=== PATIENT | male | born 1960 | race African-American/Black ===

== ENCOUNTER 2016-08-17 10:00 | Inpatient (IN) | payer OTHER ==
--- NOTE | ~2016-08-17 | DS ---
Unit #: [id number] #: [id number] Patient: RACHID TUCKER [id number] [place] [address] [id number] I MR#: [id number] NAME: RACHID TUCKER ROOM: 13 Age: 56 Sex: M Admission Date: 08/17/2016 : 1960 Discharge Date: 08/29/2016 Attending Physician: Jose Ha M.D. Primary Care Physician: Primary Care Physician No DISCHARGE SUMMARY REASON FOR ADMISSION The patient is a 56-year-old male admitted with recurrent suicidal ideation following a period of medication noncompliance. HOSPITAL COURSE The patient was admitted to the [address] [place] [address] unit and restarted on previously prescribed medications including Seroquel, trazodone, Prozac, Lipitor, and Norvasc. As this is generally the case, the patient's mood seemed to worsen somewhat before improving. By 08/29/2016, the patient was in much brighter spirits and denied suicidal ideation. He was agreeable with plan for discharge, it was so ordered. During his stay in the hospital, efforts were made to place the patient at facility in [facility], but he is unfortunately . FINAL DIAGNOSIS Chronic paranoid schizophrenia. DISPOSITION ON DISCHARGE The patient is discharged on the following medications: Seroquel 100 mg daily and 400 mg at bedtime, trazodone 100 mg at h.s. p.r.n. insomnia, Prozac 20 mg daily for depression, Lipitor 20 mg daily for dyslipidemia, and Norvasc 10 mg once daily for hypertension. DISCHARGE INSTRUCTIONS No dietary or physical restrictions were placed on the patient at the time of discharge. FOLLOWUP Followup will take place through the auspices of community mental health resources. PROGNOSIS The patient's prognosis is considered fair. Dictated by... Jose Ha M.D. LAURENCE/ammy TD: 08/30/2016 03:04 JOB #: [id number] Unit #: [id number] #: [id number] Patient: RACHID TUCKER DISCHARGE SUMMARY Page 1 of 1 X Jose Ha MD DISCHARGE SUMMARY
--- NOTE | ~2016-08-17 | PN ---
Unit #: [id number] #: [id number] Patient: RACHID TUCKER [id number] [facility] [address] [place] [address] [id number] MR#: [id number] NAME: RACHID TUCKER ROOM: 13 Age: 56 Sex: M Admission Date: 08/17/2016 : 1960 Attending Physician: Jose Ha M.D. Admitting Physician: Jose Ha M.D. Primary Care Physician: Primary Care Physician Aysha GRIFFITH PROGRESS NOTES DATE 08/27/2016 DISCUSSION The patient is in brighter spirits today. He is reporting some reduction in suicidal ideation. We continue to await word regarding positive placement at a residential facility in [facility]. Dictated by... Jose Ha M.D. CB/bzalissa TD: 08/27/2016 14:21 JOB #: [id number] [facility] PROGRESS NOTES Page 1 of 1 X Jose Ha MD PROGRESS NOTE
--- NOTE | ~2016-08-17 | PN ---
Unit #: [id number] #: [id number] Patient: RACHID TUCKER [id number] [facility] [address] [place] [address] [id number] I MR#: [id number] NAME: RACHID TUCKER ROOM: 13 Age: 56 Sex: M Admission Date: 08/17/2016 : 1960 Attending Physician: Jose Ha M.D. Admitting Physician: Jose Ha M.D. Primary Care Physician: Primary Care Physician Aysha GRIFFITH PROGRESS NOTES DATE 08/28/2016 DISCUSSION The patient remains active within the therapeutic milieu and is reporting reduction in suicidal ideation. It does not at this point appear as though the placement being sought for the patient is going to come to fruition, and we are likely looking at a.m. discharge. Dictated by... Jose Ha M.D. CB/bzg TD: 08/28/2016 15:46 JOB #: [id number] [facility] PROGRESS NOTES Page 1 of 1 X oJse Ha MD PROGRESS NOTE
--- NOTE | ~2016-08-17 | PA ---
Unit #: [id number] #: [id number] Patient: RACHID TUCKER [id number] [place] [address] [id number] I MR#: [id number] NAME: RACHID TUCKER ROOM: 13 Age: 56 Sex: M Admission Date: 08/17/2016 : 1960 Date of Assessment: 08/17/2016 Attending Physician: Jose Ha M.D. Admitting Physician: Jose Ha M.D. Primary Care Physician: Primary Care Physician No PSYCHIATRIC ASSESSMENT IDENTIFYING INFORMATION The patient is a 56-year-old male well-known to this physician. He returns with recurrent suicidal ideation and auditory hallucinations related to a period of medication noncompliance. CHIEF COMPLAINT None given. INFORMANT(S) The patient, reliability is fair. The patient is a 56-year-old male well-known to this physician for multiple previous admissions to facility the last of which ended on 05/01/2016. The patient reports that he was dismissed from [facility] secondary to several missed appointments and has been off medications for some time. The patient had previously been discharged on Seroquel, trazodone, Prozac and Lipitor and Norvasc which reports recurrence of suicidal and homicidal ideation as well as auditory hallucinations. He is now claiming to have hepatitis C though he has not claimed this in the past. The patient reports no use of psychiatric substances though he does have a history of cocaine and alcoholic use. For more complete history of illness please refer to previous dictated notes. PAST PSYCHIATRIC HISTORY Reviewed no changes. PAST MEDICAL HISTORY Reviewed no changes. MEDICATIONS 1. Seroquel 2. Trazodone 3. Prozac 4. Norvasc 5. Lipitor ALLERGIES None. FAMILY HISTORY Reviewed no changes. Unit #: [id number] #: [id number] Patient: RACHID TUCKER SOCIAL HISTORY Reviewed no changes. MENTAL STATUS EXAM At this time reveals the patient to be an obese female appearing stated age. He is in no apparent physical distress at the time of examination. He is awake, alert, oriented in all spheres. His mood is mildly dysphoric. His affect constricted. Speech is generally relevant and coherent. There are no gross deficits in memory or cognition noted. Intelligence is judged to be in the average range based on fund of knowledge. The patient is cooperative throughout the interview. He is currently endorsing positive suicidal ideation and he denies homicidal ideation. He reports positive auditory hallucinations. His judgement and insight appear to be significantly impaired. ASSETS AND LIABILITIES ASSETS: Motivation for change. LIABILITIES: Lack of resources, poor compliance of treatment. ADMITTING DIAGNOSES 1. Schizoaffective disorder. 2. Hypertension. 3. Hepatitis C per the patient history. 4. Dyslipidemia. TREATMENT PLAN The patient remains hospitalized for safety and stabilization. We will restart previously prescribed medications. Suicidal precautions are in place. The importance of consistent compliance of medication is stressed to the patient during today's interview. ESTIMATED LENGTH OF STAY Five to seven days. Dictated by... Jose Ha M.D. LAURENCE/andrew TD: 08/18/2016 20:44 JOB #: [id number] PSYCHIATRIC ASSESSMENT Page 1 of 1 X Jose Ha MD X PSYCHIATRIC ASSESSMENT
--- NOTE | ~2016-08-17 | PN ---
Unit #: [id number] #: [id number] Patient: RACHID TUCKER [id number] [facility] [address] [place] [address] [id number] I MR#: [id number] NAME: RACHID TUCKER ROOM: 13 Age: 56 Sex: M Admission Date: 08/17/2016 : 1960 Attending Physician: Jose Ha M.D. Admitting Physician: Jose Ha M.D. Primary Care Physician: Primary Care Physician Aysha GARCIA NOTES DATE 08/21/2016 DISCUSSION The patient continues to complain of auditory hallucinations and severe depression. He reports that his suicidal ideation persists. He is active within the therapeutic milieu and is tolerating reinitiation of aggressive pharmacotherapy. Dictated by... Jose Ha M.D. CB/luis TD: 08/21/2016 15:04 JOB #: [id number] [facility] PROGRESS NOTES Page 1 of 1 X Jose Ha MD PROGRESS NOTE
--- NOTE | ~2016-08-17 | PN ---
Unit #: [id number] #: [id number] Patient: RACHID TUCKER [id number] [facility] [address] [place] [address] [id number] I MR#: [id number] NAME: RACHID TUCKER ROOM: 13 Age: 56 Sex: M Admission Date: 08/17/2016 : 1960 Attending Physician: Jose Ha M.D. Admitting Physician: Jose Ha M.D. Primary Care Physician: Primary Care Physician Aysha GRIFFITH PROGRESS NOTES DATE 08/23/2016 DISCUSSION The patient reports mild improvement in mood but continues to endorse positive suicidal ideation or auditory hallucinations. He is a bit brighter and more active within the therapeutic milieu. We continue current treatment. Dictated by... Jose Ha M.D. CB/bzalissa TD: 08/23/2016 12:55 JOB #: [id number] [facility] PROGRESS NOTES Page 1 of 1 X Jose Ha MD PROGRESS NOTE
--- NOTE | ~2016-08-17 | PN ---
Unit #: [id number] #: [id number] Patient: RACHID TUCKER [id number] [facility] [address] [place] [address] [id number] I MR#: [id number] NAME: RACHID TUCKER ROOM: 13 Age: 56 Sex: M Admission Date: 08/17/2016 : 1960 Attending Physician: Jose Ha M.D. Admitting Physician: Jose Ha M.D. Primary Care Physician: Primary Care Physician Aysha GARCIA NOTES DATE 08/19/2016 DISCUSSION The patient continues to endorse positive suicidal ideation and hopelessness. He continues to report positive auditory hallucinations but is active within the therapeutic milieu. He remains on suicide precautions given his ongoing feelings of hopelessness and suicidal thought with plan to overdose. Dictated by... Jose Ha M.D. CB/arian TD: 08/19/2016 14:53 JOB #: [id number] [facility] PROGRESS NOTES Page 1 of 1 X Jose Ha MD PROGRESS NOTE
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
--- NOTE | ~2016-08-17 | PN ---
Unit #: [id number] #: [id number] Patient: RACHID TUCKER [id number] [facility] [address] [place] [address] [id number] I MR#: [id number] NAME: RACHID TUCKER ROOM: P113 Age: 56 Sex: M Admission Date: 08/17/2016 : 1960 Attending Physician: Jose Ha M.D. Admitting Physician: Jose Ha M.D. Primary Care Physician: Primary Care Physician Aysha GRIFFITH PROGRESS NOTES DATE 08/26/2016 DISCUSSION The patient remains somewhat dysphoric but is active within the therapeutic milieu. He continues to express feelings of hopelessness related to his current home situation but is working with a social services analyst regarding possible placement at a facility in [facility]. We continue current treatment and suicide precautions remain in place. Dictated by... Jose Ha M.D. CB/luis TD: 08/26/2016 15:59 JOB #: [id number] [facility] PROGRESS NOTES Page 1 of 1 X Jose Ha MD PROGRESS NOTE
--- NOTE | ~2016-08-17 | PN ---
Unit #: [id number] #: [id number] Patient: RACHID TUCKER [id number] [facility] [address] [place] [address] [id number] I MR#: [id number] NAME: RACHID TUCKER ROOM: 13 Age: 56 Sex: M Admission Date: 08/17/2016 : 1960 Attending Physician: Jose Ha M.D. Admitting Physician: Jose Ha M.D. Primary Care Physician: Primary Care Physician Aysha GRIFFITH PROGRESS NOTES DATE 08/16/2016 DISCUSSION The patient is in brighter spirits today and is reporting some reduction in auditory hallucinations and suicidal thinking should he sustain progress discharge should take place in the early week. Dictated by... Jose Ha M.D. CB/andrew TD: 08/25/2016 02:34 JOB #: [id number] [facility] PROGRESS NOTES Page 1 of 1 X Jose Ha MD X PROGRESS NOTE
--- NOTE | ~2016-08-17 | PN ---
Unit #: [id number] #: [id number] Patient: RACHID TUCKER [id number] [facility] [address] [place] [address] [id number] MR#: [id number] NAME: RACHID TUCKER ROOM: 13 Age: 56 Sex: M Admission Date: 08/17/2016 : 1960 Attending Physician: Jose Ha M.D. Admitting Physician: Jose Ha M.D. Primary Care Physician: Primary Care Physician Aysha GRIFFITH PROGRESS NOTES DATE 08/18/2016 DISCUSSION The patient is active within the therapeutic milieu but continues to endorse positive suicidal ideation as well as auditory hallucinations. We continue current treatment. Dictated by... Jose Ha M.D. CB/andrew TD: 08/19/2016 02:41 JOB #: [id number] [facility] PROGRESS NOTES Page 1 of 1 X Jose Ha MD X PROGRESS NOTE
--- NOTE | ~2016-08-17 | PN ---
Unit #: [id number] #: [id number] Patient: RACHID TUCKER [id number] [facility] [address] [place] [address] [id number] MR#: [id number] NAME: RACHID TUCKER ROOM: P113 Age: 56 Sex: M Admission Date: 08/17/2016 : 1960 Attending Physician: Jose Ha M.D. Admitting Physician: Casey Henriquez PROGRESS NOTES DATE 08/25/2016 DISCUSSION The patient is a bit more dysphoric today. We continued to work regarding his referral to a residential facility in [facility] where the patient hopes to go following discharge. We continued current treatment. He is more active within the therapeutic milieu but continues to endorse thoughts of suicide. Dictated by... Jose Ha M.D. CB/ezekiel TD: 08/25/2016 14:46 JOB #: [id number] [facility] PROGRESS NOTES Page 1 of 1 X Jose Ha MD X PROGRESS NOTE
--- NOTE | ~2016-08-17 | PN ---
Unit #: [id number] #: [id number] Patient: RACHID TUCKER [id number] [facility] [address] [place] [address] [id number] I MR#: [id number] NAME: RACHID TUCKER ROOM: P113 Age: 56 Sex: M Admission Date: 08/17/2016 : 1960 Attending Physician: Jose Ha M.D. Admitting Physician: Jose Ha M.D. Primary Care Physician: Primary Care Physician Aysha GRIFFITH PROGRESS NOTES DATE 08/20/2016 DISCUSSION The patient seems a tad brighter when seen today but continues to endorse positive suicidal ideation. I have spoken with him regarding increasing his participation within the therapeutic milieu which has been better during this hospitalization but not exemplary. Suicide precautions remain in place given the patient's ongoing threats of suicide. Dictated by... Jose Ha M.D. CB/arian TD: 08/20/2016 13:54 JOB #: [id number] [facility] PROGRESS NOTES Page 1 of 1 X Jose aH MD PROGRESS NOTE
[~2016-08-17 10:00] MED LIST: LISINOPRIL10 MG PO; MARINOL5 MG PO; SEROQUEL PO; SEROQUEL400 MG PO
[2016-08-18 10:13] LABS: BASOPHIL# 0.1 X10e3 (0-0.3); BASOPHIL% 2.1 % (0-2.5); EOSINOPHIL# 0.1 X10e3 (0-0.7); EOSINOPHIL% 2.7 % (0.0-7.0); HEMATOCRIT 47.2 % (38.0-50.0); HEMOGLOBIN 14.9 gm/dL (13.0-16.0); LYMPHOCYTE# 2.1 X10e3 (1.0-3.5); LYMPHOCYTE% 44.9 % (17.0-45.0); MEAN CELL VOLUME 85.7 FL (83-96); MEAN CORPUSCULAR HGB CONC 31.5 g/dL (30-36); MEAN PLATELET VOLUME 8.9 FL (6.5-11.5); MONOCYTE# 0.5 X10e3 (0-1.0); MONOCYTE% 9.8 % (3.0-12.0); NEUTROPHIL# 1.9 X10e3 (1.5-7.1); NEUTROPHIL% 40.5 % (40-75); RED BLOOD COUNT 5.51 X10e (3.90-5.60); RED CELL DISTRIBUTION WIDTH 14.2 % (11.0-15.5); WHITE BLOOD COUNT 4.7 X10e3 (4.0-10.5)
[2016-08-18 10:20] LABS: THYROID STIMULATING HORMONE 0.71 uIU/ml (0.34-5.60)
[2016-08-18 10:31] LABS: FREE THYROXIN (T4) 0.82 ng/dL (0.58-1.64)
[2016-08-18 10:32] LABS: ALBUMIN SERUM 4.2 g/dL (3.5-5.0); CALCIUM SERUM 9.4 mg/dL (8.4-10.2); CREATININE SERUM 1.2 mg/dL (0.6-1.4); GLOM FILT RATE Estimated 76.8 mL/min (>60); PROTEIN TOTAL SERUM 7.3 g/dL (6.0-8.3)
[2016-08-18 10:58] LABS: DIFF IND NO; PLATELET COUNT 203 X10e3 (140-420)
[2016-08-20 12:58] LABS: URINE APPEARANCE CLEAR; URINE BILIRUBIN NEG (NEG); URINE BLOOD NEG (NEG); URINE COLOR YELLOW; URINE GLUCOSE NEG (NEG); URINE KETONE NEG (NEG); URINE LEUKOCYTE ESTERASE NEG (NEG); URINE NITRATE NEG (NEG); URINE PH 7.5 (5-8); URINE PROTEIN NEG (NEG); URINE SPECIFIC GRAVITY 1.012 (1.003-1.035); URINE UROBILINOGEN 0.2 MG/DL (NEG)
[2016-08-20 14:12] LABS: AMPHETAMINE NEG (NEG); BARBITURATES NEG (NEG); BENZODIAZEPINES NEG (NEG); COCAINE POS (NEG); MARIJUANA POS (NEG); OPIATES NEG (NEG); TRICYCLIC ANTIDEPRESSANTS POS (NEG); U METHADONE NEG (NEG)
== END 2016-08-29 15:25 | disposition home or self-care (01) | DRG 885 ==
LOC: P1S 13:27
PROVIDERS: Specialist
DX: F20.0 Paranoid schizophrenia (principal); Z91.19 Patient's noncompliance with other medical treatment and regimen; K74.60 Unspecified cirrhosis of liver; I10 Essential (primary) hypertension; Z86.19 Personal history of other infectious and parasitic diseases; E78.5 Hyperlipidemia, unspecified
CPT/HCPCS: 80053; 80307; 81003; 84439; 84443; 85025

== ENCOUNTER 2016-09-18 18:59 | Inpatient (IN) | payer OTHER ==
--- NOTE | ~2016-09-18 | PN ---
Unit #: [id number] #: [id number] Patient: RACHID TUCKER [id number] [facility] [address] [place] [address] [id number] I MR#: [id number] NAME: RACHID TUCKER ROOM: P113 Age: 56 Sex: M Admission Date: 09/18/2016 : 1960 Attending Physician: Jose Ha M.D. Admitting Physician: Jose Ha M.D. Primary Care Physician: Primary Care Physician Aysha GRIFFITH PROGRESS NOTES DATE 09/25/2016 DISCUSSION The patient reports that he has been accepted at the facility and likes [place] and we will hope to transfer him directly from this facility there, he is a bit brighter today with reinitiation of Seroquel. Dictated by... Casey Henriquez TD: 09/25/2016 13:04 JOB #: [id number] [facility] PROGRESS NOTES Page 1 of 1 X Jose Ha MD PROGRESS NOTE
--- NOTE | ~2016-09-18 | HP ---
Unit #: [id number] #: [id number] Patient: OTIS TUCKER [id number] [facility] [address] [place] [address] [id number] I MR#: [id number] NAME: OTIS TUCKER ROOM: P113 Age: 56 Sex: M Admission Date: 09/18/2016 : 1960 Attending Physician: Jose Ha M.D. Admitting Physician: Jose Ha M.D. Primary Care Physician: Primary Care Physician No HISTORY AND PHYSICAL Otis is a 56 year old admitted to [address] [place] [address] with depression and verbalizing wanting to hurt himself. He has had numerous admissions to this facility for the same. Patient was seen and H and P dated 08/18/16 was reviewed. This is current. No changes. Please see H and P dated 08/18/16. Dictated by... Michelle Ott P.A.-C. for Casey Doherty/luis TD: 09/19/2016 20:37 JOB #: [id number] HISTORY AND PHYSICAL Page 1 of 1 X Michelle Ott HISTORY AND PHYSICAL
--- NOTE | ~2016-09-18 | PN ---
Unit #: [id number] #: [id number] Patient: RACHID TUCKER [id number] [facility] [address] [place] [address] [id number] I MR#: [id number] NAME: RACHID TUCKER ROOM: P113 Age: 56 Sex: M Admission Date: 09/18/2016 : 1960 Attending Physician: Jose Ha M.D. Admitting Physician: Jose Ha M.D. Primary Care Physician: Primary Care Physician Aysha GRIFFITH PROGRESS NOTES DATE OF SERVICE 09/29/2016 DISCUSSION Mr. Tucker is seen today for Dr. Ha during his vacation absence. The patient appears at baseline and denies active suicidal ideation, intent or plan. He has been granted a placement in a long-term care facility and is scheduled to go there tomorrow. ASSESSMENT Schizophrenia paranoid type. PLAN We will schedule discharge for the patient tomorrow with followup through community mental health. Dictated by... Rodger Medrano M.D. RHETT/andrew TD: 10/04/2016 23:09 JOB #: [id number] [facility] PROGRESS NOTES Page 1 of 1 X Rodger Medrano MD X PROGRESS NOTE
--- NOTE | ~2016-09-18 | PN ---
Unit #: [id number] #: [id number] Patient: RACHID TUCKER [id number] [facility] [address] [place] [address] [id number] I MR#: [id number] NAME: RACHID TUCKER ROOM: 13 Age: 56 Sex: M Admission Date: 09/18/2016 : 1960 Attending Physician: Jose Ha M.D. Admitting Physician: Jose Ha M.D. Primary Care Physician: Primary Care Physician Aysha GRIFFITH PROGRESS NOTES DATE 09/23/2016 DISCUSSION The patient requests reinitiation of his daytime dose of Seroquel stating, "I'm not doing to good." We will reinitiate the a.m. dose of Seroquel of 100 mg q.a.m. Continue the h.s. dose of 400 mg. the patient continues to endorse auditory hallucinations and suicidal thinking. Dictated by... Jose Ha M.D. CB/tony TD: 09/24/2016 07:45 JOB #: [id number] [facility] PROGRESS NOTES Page 1 of 1 X Jose Ha MD PROGRESS NOTE
--- NOTE | ~2016-09-18 | PN ---
Unit #: [id number] #: [id number] Patient: RACHID TUCKER [id number] [facility] [address] [place] [address] [id number] I MR#: [id number] NAME: RACHID TUCKER ROOM: P113 Age: 56 Sex: M Admission Date: 09/18/2016 : 1960 Attending Physician: Jose Ha M.D. Admitting Physician: Jose Ha M.D. Primary Care Physician: Primary Care Physician Aysha GRIFFITH PROGRESS NOTES DATE 09/20/2016 DISCUSSION The patient offers no new complaints today. He does continue to complain of sad mood and auditory hallucinations and reports that his pharmacy refused to fill his medications secondary to lack of required authorization. This seems odd and that is on all generic medications and is not on excessively high doses of any of these. We will continue currently prescribed medications. Dictated by... Jose Ha M.D. CB/luis TD: 09/20/2016 12:54 JOB #: [id number] [facility] PROGRESS NOTES Page 1 of 1 X Jose Ha MD PROGRESS NOTE
--- NOTE | ~2016-09-18 | DS ---
Unit #: [id number] #: [id number] Patient: RACHID TUCKER [id number] [facility] [address] [place] [address] [id number] MR#: [id number] NAME: RACHID TUCKER ROOM: 13 Age: 56 Sex: M Admission Date: 09/18/2016 : 1960 Discharge Date: 09/30/2016 Attending Physician: Jose Ha M.D. DISCHARGE SUMMARY REASON FOR ADMISSION Mr. Tucker is a 56-year-old man with multiple admissions to this facility for schizophrenia, who returned reporting noncompliance with discharge and ongoing psychosis and suicidal ideation. He was unable to contract for safety and was admitted under the care of Dr. Ha. DIAGNOSTIC STUDIES LABORATORY RESULTS: Please see hospital chart. HOSPITAL COURSE The patient was admitted and placed on previous medications. He was restarted on his previous medications and his physical examination was reviewed and not repeated. He had some excessive sedation from his medications and expressed significant interest in a residential placement. His social problems specialist began working toward this as requested, and by the date of discharge, placement had been found with the [facility] in [place], [place]; however, the patient appeared unhappy with this placement; however, he declined others. At this point, he was discharged to the community and given information for followup with [facility]. DISCHARGE DIAGNOSES AXIS I: Schizophrenia, paranoid type; major depressive disorder. AXIS II: No diagnosis. AXIS III: Hypertension and high cholesterol. AXIS IV: AXIS V: DISCHARGE INSTRUCTIONS Follow up with [facility]. DISCHARGE MEDICATIONS Seroquel 400 mg at bedtime for psychosis and 100 mg in the morning for psychosis, trazodone 100 mg at bedtime for insomnia, fluoxetine 20 mg daily for depression, Lipitor 20 mg at bedtime for high cholesterol, and Norvasc 10 mg daily for hypertension. CONDITION AT DISCHARGE Fair. PROGNOSIS Fair to poor. Unit #: [id number] #: [id number] Patient: RACHID TUCKER DIET AND ACTIVITY Per primary care doctor. Dictated by... Rodger Medrano M.D. /ammy TD: 10/06/2016 14:02 JOB #: [id number] DISCHARGE SUMMARY Page 1 of 1 X Rodger Medrano MD DISCHARGE SUMMARY
--- NOTE | ~2016-09-18 | PN ---
Unit #: [id number] #: [id number] Patient: RACHID TUCKER [id number] [facility] [address] [place] [address] [id number] I MR#: [id number] NAME: RACHID TUCKER ROOM: 13 Age: 56 Sex: M Admission Date: 09/18/2016 : 1960 Attending Physician: Jose Ha M.D. Admitting Physician: Jose Ha M.D. Primary Care Physician: Primary Care Physician Aysha GARCIA NOTES DATE 09/22/2016 DISCUSSION The patient is brighter and more active within the milieu therapeutic milieu. He continues to express interest in a residential placement and is working with the social service worker Mr. related there too. Dictated by... Jose Ha M.D. CB/andrew TD: 09/23/2016 04:07 JOB #: [id number] [facility] GARCIA NOTES Page 1 of 1 X Jose Ha MD PROGRESS NOTE
--- NOTE | ~2016-09-18 | PN ---
Unit #: [id number] #: [id number] Patient: RACHID TUCKER [id number] [facility] [address] [place] [address] [id number] I MR#: [id number] NAME: RACHID TUCKER ROOM: 13 Age: 56 Sex: M Admission Date: 09/18/2016 : 1960 Attending Physician: Jose Ha M.D. Admitting Physician: Jose Ha M.D. Primary Care Physician: Primary Care Physician Aysha GARCIA NOTES DATE OF SERVICE: 09/28/2016 HISTORY Upon today's assessment, the patient was found interacting with peers in the milieu. At this time, he reports he is doing good and that he feels that his medications are helping. He reports no suicidal or homicidal ideation and verbalizes no plan or intent. He denied auditory or visual hallucinations. No overt symptoms of psychosis were noted. He reports that he is looking forward to discharge on Thursday and will follow up with his outpatient providers at that time. PLAN Continue current medication and checks q.15 minutes for safety. Dictated by... Dia Morley APRN for Casey Henriquez/ammy TD: 09/30/2016 14:18 JOB #: [id number] [facility] GARCIA NOTES Page 1 of 1 X DIA MORLEY NOTE
--- NOTE | ~2016-09-18 | PN ---
Unit #: [id number] #: [id number] Patient: RACHID TUCKER [id number] [facility] [address] [place] [address] [id number] MR#: [id number] NAME: RACHID TUCKER ROOM: 13 Age: 56 Sex: M Admission Date: 09/18/2016 : 1960 Attending Physician: Jose Ha M.D. Admitting Physician: Jose Ha M.D. Primary Care Physician: Primary Care Physician Aysha GRIFFITH PROGRESS NOTES DATE 09/21/2016 DISCUSSION The patient ____(:06) from this morning and cannot be aroused for interview. Staff reports no management issues but reports that his participation within the therapeutic milieu has been less than optimal. Dictated by... Jose Ha M.D. CB/andrew TD: 09/21/2016 22:14 JOB #: [id number] [facility] PROGRESS NOTES Page 1 of 1 X Jose Ha MD PROGRESS NOTE
--- NOTE | ~2016-09-18 | PN ---
Unit #: [id number] #: [id number] Patient: RACHID TUCKER [id number] [facility] [address] [place] [address] [id number] I MR#: [id number] NAME: RACHID TUCKER ROOM: 13 Age: 56 Sex: M Admission Date: 09/18/2016 : 1960 Attending Physician: Jose Ha M.D. Admitting Physician: Jose Ha M.D. Primary Care Physician: Primary Care Physician Aysha GRIFFITH PROGRESS NOTES DATE 09/24/2016 DISCUSSION The patient is somewhat brighter today. He is active within the therapeutic milieu and reports some improvement in anxiety symptoms with re-initiation of daytime Seroquel. He is reporting some reduction in psychotic thinking but continues to express some hopelessness and thoughts of suicide. We continue to await word regarding possible disposition options. Dictated by... Jose Ha M.D. CB/luis TD: 09/24/2016 23:06 JOB #: [id number] [facility] PROGRESS NOTES Page 1 of 1 X Jose Ha MD PROGRESS NOTE
--- NOTE | ~2016-09-18 | PA ---
Unit #: [id number] #: [id number] Patient: RACHID TUCKER [id number] [facility] [address] [place] [address] [id number] I MR#: [id number] NAME: RACHID TUCKER ROOM: P113 Age: 56 Sex: M Admission Date: 09/18/2016 : 1960 Date of Assessment: 09/19/2016 Attending Physician: Jose Ha M.D. Admitting Physician: Jose Ha M.D. Primary Care Physician: Primary Care Physician No PSYCHIATRIC ASSESSMENT IDENTIFYING INFORMATION The patient is a 56-year-old male well-known to this physician from multiple previous admissions to this facility the last of which ended on 08/29/2016. He returns not having complied with medications since his discharge. INFORMANT(S) Chart. Patient could not be aroused for interview. CHIEF COMPLAINT None given. HISTORY OF PRESENT ILLNESS The patient is a 56-year-old male admitted to the [address] [place] [address] unit after he had presented to this facility voicing positive suicidal ideation as well as nonspecific homicidal ideation. The patient was planning to "stab someone with a knife" and reports suicidal ideation with plan to stab himself. The patient was reporting positive command hallucinations. He was abusing alcohol outside the hospital. For a more complete history of present illness, please refer to previous dictated notes. PAST PSYCHIATRIC HISTORY Reviewed, no changes. FAMILY HISTORY/SOCIAL HISTORY Reviewed, no changes. MEDICAL HISTORY Reviewed, no changes. MEDICATION HISTORY 1. Norvasc. 2. Lipitor. 3. Prozac. 4. Seroquel. 5. Trazodone. ALLERGIES None. MENTAL STATUS EXAM At this time, reveals the patient to be an obese male Unit #: [id number] #: [id number] Patient: RACHID TUCKER appearing stated age. He is resting comfortably and multiple attempts to arouse him are unsuccessful. ASSETS AND LIABILITIES Patient's assets to be assessed. Liabilities, lack of resources. ADMITTING DIAGNOSES 1. Chronic paranoid schizophrenia. 2. Alcohol use disorder. 3. Hypertension. PSYCHIATRIC PLAN/TREATMENT GOALS The patient's home medications will be restarted. This physician did give the patient prescriptions for his medications at the time of his last discharge, so his noncompliance is somewhat puzzling. The patient will participate in appropriate edwards and milieu activities. ESTIMATED LENGTH OF STAY Five to seven days. Dictated by... Jose Ha M.D. LAURENCE/luis TD: 09/19/2016 15:51 JOB #: [id number] PSYCHIATRIC ASSESSMENT Page 1 of 1 X Jose Ha MD X PSYCHIATRIC ASSESSMENT
[2016-09-19 09:41] LABS: BASOPHIL# 0.1 X10e3 (0-0.3); BASOPHIL% 1.9 % (0-2.5); EOSINOPHIL# 0.1 X10e3 (0-0.7); EOSINOPHIL% 3.5 % (0.0-7.0); HEMATOCRIT 43.3 % (38.0-50.0); LYMPHOCYTE# 2.1 X10e3 (1.0-3.5); LYMPHOCYTE% 49.8 % (17.0-45.0); MEAN CELL VOLUME 84.6 FL (83-96); MEAN CORPUSCULAR HEMOGLOBIN 27.4 PG (28-34); MEAN CORPUSCULAR HGB CONC 32.3 g/dL (30-36); MEAN PLATELET VOLUME 8.7 FL (6.5-11.5); MONOCYTE# 0.4 X10e3 (0-1.0); MONOCYTE% 8.5 % (3.0-12.0); NEUTROPHIL# 1.5 X10e3 (1.5-7.1); NEUTROPHIL% 36.3 % (40-75); PLATELET COUNT 199 X10e3 (140-420); RED BLOOD COUNT 5.12 X10e (3.90-5.60); RED CELL DISTRIBUTION WIDTH 13.8 % (11.0-15.5); WHITE BLOOD COUNT 4.2 X10e3 (4.0-10.5)
[2016-09-19 09:45] LABS: DIFF IND NO
[2016-09-19 09:56] LABS: BILIRUBIN,TOTAL 1.1 mg/dL (0.2-2.0); BUN/CREATININE RATIO 13.63; CALCIUM SERUM 9.3 mg/dL (8.4-10.2); CREATININE SERUM 1.1 mg/dL (0.6-1.4); GLOM FILT RATE Estimated 85.3 mL/min (>60); POTASSIUM 4.4 mmol/L (3.5-5.1); PROTEIN TOTAL SERUM 7.1 g/dL (6.0-8.3)
== END 2016-09-30 10:55 | disposition home or self-care (01) | DRG 885 ==
LOC: P1S 20:41
PROVIDERS: Specialist
DX: F20.0 Paranoid schizophrenia (principal); K74.60 Unspecified cirrhosis of liver; R45.851 Suicidal ideations; I10 Essential (primary) hypertension; F10.10 Alcohol abuse, uncomplicated; B19.20 Unspecified viral hepatitis C without hepatic coma; E78.5 Hyperlipidemia, unspecified; Z76.5 Malingerer [conscious simulation]
CPT/HCPCS: 80053; 85025